=== PATIENT | male | born 1975 | race Caucasian/White ===

== ENCOUNTER 2024-03-20 17:08 | Emergency (ER) | payer SELFPAY | END 2024-03-20 20:32 | disposition home or self-care (01) | LOC: ERS 17:08 | DX: M70.41 Prepatellar bursitis, right knee (principal); L03.115 Cellulitis of right lower limb ==

== ENCOUNTER 2025-08-17 13:35 | Emergency (ER) | payer SELFPAY | END 2025-08-17 16:15 | disposition home or self-care (01) | LOC: ERS 13:35 | DX: S80.862A Insect bite (nonvenomous), left lower leg, initial encounter (principal); S80.861A Insect bite (nonvenomous), right lower leg, initial encounter; L03.116 Cellulitis of left lower limb; L03.115 Cellulitis of right lower limb; I10 Essential (primary) hypertension; W57.XXXA Bitten or stung by nonvenomous insect and other nonvenomous arthropods, initial encounter | CPT/HCPCS: 99282 ==